=== PATIENT | male | born 1940 | race Caucasian/White ===

== ENCOUNTER 2018-10-09 01:03 | Inpatient (IN) | payer MEDICARE, OTHER, MEDICAID ==
[~2018-10-09] VITALS: Ht 185.4 cm; Wt 84.0 kg
--- NOTE | ~2018-10-09 | PR ---
[place], [place] PROGRESS NOTE NAME: LUCIA WADE UNIT #: [id number] ROOM: 314 DOCTOR: KENNETH MAHMOOD MD BIRTHDATE: [birth year] DOS: 10/13/2018 PSYCHIATRIC PROGRESS NOTE SUBJECTIVE: The patient is seen and spoke with the nursing staff. Per staff, the patient is doing well. No behavioral problems or issues. Compliant with medication. Slept well last night. The patient was pleasant and cooperative. He was interacting in the groups in the TV area, he was playing. He said that he is feeling better. He talked about his brother. He told me that his brother lives in [place] and he would like to meet with him time. He was not in any acute distress. He denied being depressed or sad. MENTAL STATUS EXAMINATION: The patient was pleasant and cooperative. He described his mood as "okay." Affect was euthymic. Thought process goal directed. No flight of ideas, loosening of association. He denied auditory or visual hallucination. No delusion or paranoia noted. He denies suicidal ideation, intent or plan. He also denied homicidal ideation, intent or plan. PLAN: 1. Continue current medication and care. 2. Continue redirection. 3. Supportive care. KENNETH MAHMOOD MD CM:PNTRANS [phone] KENNETH MAHMOOD MD 10/14/1852 interface
--- NOTE | ~2018-10-09 | PR ---
[place], [place] PROGRESS NOTE NAME: LUCIA WADE UNIT #: [id number] ROOM: 314 DOCTOR: KENNETH MAHMOOD MD BIRTHDATE: [birth year] DOS: 10/15/2018 SUBJECTIVE: The patient seen and spoke with the nursing staff. Per staff, the patient is doing well. No behavior problems or issues, taking his medication. He slept well last night. The patient was in the day area. He reports doing well. He denied any side effect from the medication. He reported good sleep and appetite. He did not express any problems or concern. MENTAL STATUS EXAMINATION: The patient was pleasant and cooperative. He described his mood as "good." Affect was euthymic. Thought processes with confabulation. He denied auditory or visual hallucination. No delusion or paranoia noted. He denied suicidal ideation, intent or plan. He also denied homicidal ideation, intent or plan. PLAN: 1. Continue current medication and care. 2. Continue redirection. 3. Supportive care. KENNETH MAHMOOD MD CM:PNTRANS [phone] KENNETH MAHMOOD MD 10/16/18 0404 interface
--- NOTE | ~2018-10-09 | PR ---
[place], [place] [facility]GRESS [id number] UN[facility] #: [id number] ROOM: 314 DOCTOR: KENNETH MAHMOOD MD BIRTHDATE: [birth year] DOS: 10/11/2018 PSYCHIATRIC PROGRESS NOTE. SUBJECTIVE: The patient is seen and I spoke with the staff. Per staff, the patient was irritable at times. Taking his meds, but refusing meals at times. The patient was pleasant and cooperative. He was in the day area. When I asked him about his behavior or issues of not taking medication, he said that "I have some issue." He also then mentioned that his brother and he feels sad and down. He did not express any other problems. He reports good sleep. He said that he is taking his medication and did not have any side effect. He also told me that he will be eating from now on. MENTAL STATUS EXAMINATION: The patient was pleasant and cooperative. Described his mood as "down." Affect was flat and euthymic. Thought processes with confabulation. He denied auditory or visual hallucination. No delusions or paranoia noted. He denied suicidal ideation, intent or plan. He also denied homicidal ideation, intent or plan. PLAN: 1. Continue current medication and care. 2. Encourage activities in groups. 3. Supportive care. KENNETH MAHMOOD MD CM:PNTRANS [phone] KENNETH MAHMOOD MD 10/12/182205 interface
--- NOTE | ~2018-10-09 | PR ---
[place], [place] PROGRESS NOTE NAME: LUCIA WADE UNIT #: [id number] ROOM: 314 DOCTOR: KENNETH MAHMOOD MD BIRTHDATE: [birth year] DOS: 10/21/2018 PSYCHIATRIC PROGRESS NOTE SUBJECTIVE: The patient seen and spoke with the nursing staff. Per staff, the patient is doing very well. No behavioral problems or issues. Slept 6 hours. Compliant with his medication. The patient was pleasant, cooperative. He was at [facility], he was in the day area. He was visited by his family. He reports doing okay. He denied any side effects from the medication. He reports good sleep and appetite. MENTAL STATUS EXAMINATION: The patient was pleasant, cooperative, described his mood as "okay." Affect was euthymic. Thought process is with confabulation. He denied auditory or visual hallucination. No delusion or paranoia noted. Denied suicidal ideation, intent or plan. He also denied homicidal ideation, intent or plan. PLAN: 1. Continue current medication and care. 2. Continue redirection. 3. Discharge planning. KENNETH MAHMOOD MD CM:PNTRANS 18 1 KENNETH MAHMOOD MD 10/22/18 0423 interface
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
--- NOTE | ~2018-10-09 | PR ---
[place], [place] PROGRESS NOTE NAME: LUCIA WADE UNIT #: [id number] ROOM: 314 DOCTOR: KENNETH MAHMOOD MD BIRTHDATE: [birth year] DOS: 10/18/2018 PSYCHIATRIC PROGRESS NOTE SUBJECTIVE: The patient was seen and spoke with the staff. Per staff, the patient is doing well. He also said that he slept well, but isolated. He is taking his medication regularly and did not have any side effect from the medication. MENTAL STATUS EXAMINATION: Pleasant and cooperative. Described his mood as "okay." Affect was euthymic. Thought process is goal directed. No flight of ideas, loosening of association. He denied suicidal ideation, intent or plan. He also denied homicidal ideation, intent or plan. PLAN: 1. Continue current medications. 2. Continue redirection. 3. Supportive care. KENNETH MAHMOOD MD CM:PNTRANS [phone] KENNETH MAHMOOD MD 10/19/18 0157 interface
--- NOTE | ~2018-10-09 | PR ---
[place], [place] PROGRESS NOTE NAME: LUCIA WADE UNIT #: [id number] ROOM: 314 DOCTOR: KENNETH MAHMOOD MD BIRTHDATE: [birth year] DOS: 10/20/2018 PSYCHIATRIC PROGRESS NOTE SUBJECTIVE: The patient is seen and spoke with nursing staff. Per staff, the patient slept 6 hours, still isolated, compliant with his medication. No behavior problems or issues. The patient was pleasant and cooperative. He was in the day area, seems somewhat flat. When I asked him how he is doing, he said that he is fine. He reports good sleep. He also denied any side effects from the medication. MENTAL STATUS EXAMINATION: The patient was pleasant and cooperative. Described his mood as "fine." Affect was flat. Thought processes with confabulation. He denied auditory or visual hallucination. No delusion or paranoia noted. He denied suicidal ideation, intent or plan. He also denied homicidal ideation, intent or plan. PLAN: 1. Continue current medication and care. 2. Continue redirection. 3. Encourage activity and groups. KENNETH MAHMOOD MD CM:PNTRANS [phone] KENNETH MAHMOOD MD 10/21/188 interface
--- NOTE | ~2018-10-09 | PR ---
[place], [place] PROGRESS NOTE NAME: LUCIA WADE UNIT #: [id number] ROOM: 314 DOCTOR: GUILLERMO MILLS CNP BIRTHDATE: [birth year] DOS: 10/17/2018 CHIEF COMPLAINT: "I am okay". SUMMARY OF THE VISIT: The patient was interviewed as he sat in the dining room, eating his breakfast. The patient verbalizes minimally with me providing mostly 1-2 word answers. He does report that he slept well last night. His appetite is good. He denies feeling anxious or agitated. Staff reports that the patient slept 8 hours. He has been compliant with medications. He has been stable. No behaviors exhibited. N inappropriate sexual behavior noted. MENTAL STATUS EXAMINATION: The patient is alert and oriented to person and self. He was pleasant and cooperative with me. No kaity or hypomania noted. No delusions or paranoia noted. No psychotic symptoms noted. No auditory or visual hallucinations noted. The patient's mood was calm. Affect is congruent with mood. No aggression or agitation noted at this time. PLAN: We will continue the patient's medications as prescribed as he appears to be tolerating them well without any side effects and they appear to be effective. Plan to discharge the patient on Thursday. In the meantime, encourage the patient to engage in individual and galvan milieu activity. Continue fall and safety precautions. Plan to return the patient to the least restrictive environment once psychiatrically stable. Guillermo Mills CNP CM:PNTRANS [phone] GUILLERMO MILLS CNP 10/17/18 1006 interface
--- NOTE | ~2018-10-09 | PR ---
[place], [place] PROGRESS NOTE NAME: LUCIA WADE UNIT #: [id number] ROOM: 314 DOCTOR: KENNETH MAHMOOD MD BIRTHDATE: [birth year] DOS: 10/14/2018 PSYCHIATRIC PROGRESS NOTE SUBJECTIVE: The patient was seen and spoke with the staff. Per staff, the patient slept well. No behavioral problems or issues, but seems to be still depressed. The patient was pleasant and cooperative. He was in the day area. He reports doing well. He talked about his sister. He said that he would like to go and visit them. He denied depressed mood. He did not express any concern. He said that he slept well last night. MENTAL STATUS EXAMINATION: The patient was pleasant and cooperative. He described his mood as "okay." Affect was euthymic. Thought processes with confabulation. He denied auditory or visual hallucination. No delusion or paranoia noted. He denies suicidal ideation, intent or plan. He also denied homicidal ideation, intent or plan. PLAN: 1. Continue current medications and care. 2. Continue redirection. 3. Supportive care. 4. Encourage activities in groups. KENNETH MAHMOOD MD CM:PNTRANS [phone] KENNETH MAHMOOD MD 10/15/18 0112 interface
--- NOTE | ~2018-10-09 | PR ---
[place], [place] PROGRESS NOTE NAME: LUCIA WADE UNIT #: [id number] ROOM: 315 DOCTOR: BIN PARKER MD BIRTHDATE: [birth year] DOS: 10/10/2018 CHIEF COMPLAINT: "Morning." SUMMARY OF THE VISIT: The patient was interviewed as he was resting in bed. He awoke relatively easily and engaged in brief superficial conversation. There was no agitation or aggression. There was no mood lability and there were no inappropriate comments. Nurses report that overall he has not been problematic and has been redirectable. MENTAL STATUS: He is alert and oriented to person, place, not necessarily time. Mood does seem to be fairly euthymic. Affect appropriate. No hypomania, kaity or psychosis is noted. Short term memory continues to be problematic. PLAN: At this point in time, I will maintain his current psychotropic regimen, monitor and engage in individual and galvan milieu activity, determining the least restrictive environment to which he could return. BIN PARKER MD CM:PNTRANS [phone] BIN PARKER MD 10/10/18 1032 interface
--- NOTE | ~2018-10-09 | PR ---
[place], [place] PROGRESS NOTE NAME: LUCIA WADE UNIT #: [id number] ROOM: 314 DOCTOR: BIN PARKER MD BIRTHDATE: [birth year] DOS: 10/11/2018 INTERVAL NOTE CHIEF COMPLAINT: "Oh, "I am okay. I would like to go visit my brother in [place] though." SUMMARY OF THE VISIT: The patient was interviewed in the dining area where he was rather bright and pleasant. He voiced no complaints. He minimized any of his behaviors, but nurses report, he has become increasingly more sexually inappropriate, not only as he asked them to lay on his private parts, but he has been found openly masturbating. MENTAL STATUS: He is alert and oriented to person, possibly place, not to time. Mood does seem to still be labile and affect is inappropriate. There is no kellee kaity. There is no gross psychosis. Short term memory continues to be problematic. PLAN: I will discontinue his Remeron in lieu of Celexa 20 mg in the morning to decrease his libido. We will monitor and support, engage in individual and galvan milieu activity, returning to the least restrictive environment when psychiatrically stable. BIN PARKER MD CM:PNTRANS [phone] BIN PARKER MD 10/12/18 0332 interface
--- NOTE | ~2018-10-09 | PR ---
[place], [place] PROGRESS NOTE NAME: LUCIA WADE UNIT #: [id number] ROOM: 314 DOCTOR: KENNETH MAHMOOD MD BIRTHDATE: [birth year] DOS: 10/19/2018 PSYCHIATRIC PROGRESS NOTE SUBJECTIVE: The patient is seen and spoke with the staff. Per staff, the patient did not sleep well last night, only 1-2 hours, but no other behavioral problems or issues. He is taking his medication regularly. Did not have any side effect. The patient was pleasant and cooperative. He was in the day area. His sister and came to visit him. They feel the patient is at baseline and getting ready to get discharged. The patient was in the day area. He reports doing well. He was able to recognize his and his sister. He denied any side effects from the medication. MENTAL STATUS EXAMINATION: The patient was pleasant and cooperative. Described his mood as "okay." Affect was euthymic. Thought process is with confabulation. He denied auditory or visual hallucination. No delusion or paranoia noted. He denied suicidal ideation, intent or plan. He also denied any homicidal ideation, intent or plan. PLAN: 1. Continue current medication and care. 2. Continue redirection and supportive care. KENNETH MAHMOOD MD CM:PNTRANS [phone] KENNETH MAHMOOD MD 10/20/185 interface
--- NOTE | ~2018-10-09 | PR ---
[place], [place] PROGRESS NOTE NAME: LUCIA WADE UNIT #: [id number] ROOM: 314 DOCTOR: GUILLERMO MILLS CNP BIRTHDATE: [birth year] DOS: 10/16/2018 CHIEF COMPLAINT: "I need to go to the bathroom." SUMMARY OF VISIT: The patient was interviewed as he sat in his bed. The patient reports that he slept well last night and that he is hungry. He is ready to get up and get breakfast. Staff reports that the patient stayed in his room most of the evening. He did sleep 9 hours last night. He has been taking medications as prescribed. No hallucinations have been noted. MENTAL STATUS EXAMINATION: The patient is alert and oriented to person and self. He is pleasant and cooperative with me. No kaity or hypomania noted. No delusions or paranoia noted. No psychotic symptoms noted. No auditory or visual hallucinations noted. The patient's mood was calm. His affect is congruent with mood. PLAN: We will continue the patient's medications as prescribed. We will continue to monitor for side effects and effectiveness of the medication. Continue to encourage the patient to engage in individual and galvan milieu activity. Continue fall and safety precautions and plan to return the patient to the least restrictive environment once he is considered psychiatrically stable. Guillermo Mills CNP CM:PNTRANS [phone] GUILLERMO MILLS CNP 10/16/18 1304 interface
[2018-10-09] MEDS ORDERED: LIPITOR20 MG PO (01:24)
[2018-10-09] MEDS ORDERED: ASPIRIN ADULT L81 MG PO (01:24)
[2018-10-09] MEDS ORDERED: REMERON15 M2 PO (01:26)
[2018-10-09 01:40] VITALS: BP 147/75
--- NOTE | 2018-10-09 01:40 | NUR ---
LUCIA WADE a 78 year old M admitted via from the ADMITTING as a emergency 72 hr. hold admission. Arrived on unit at 0140. ALLERGIES: FLAGYL, PCN. Vital signs are: [id number] 147/75. The client REFUSED TO signed the following forms: Authorization For The Release of Medical Information, Clothing List, Consent to Voluntary Admission and Hospitalization, Consent and Release Forms/Receipt of Rights, Acknowledgement of Advance Directive Information, Behavioral Health Consent Form, and Informed Consent of Medications. Admitted under the services of Dr. ELENA WAGNER,[facility]. A search was conducted and hazardous articles were removed. Client was oriented to the unit. LETICIA MCCRACKEN PATIENT ADMITTED AND PINK SLIPPED. PATIENT FROM [facility] ([facility]] AND SENT TO THE EMERGENCY ROOM FOR MEDICAL CLEARANCE BEFORE BEING ADMITTED TO THE FLOOR. PATIENT WITH SCATTERED SCABS TO NECK, BILATERAL UPPER AND LOWER EXTREMITIES. PATIENT WITH SMALL SCATTERED ECCHYMOTIC AREAS TO BILATERAL UPPER AND LOWER EXTREMIES AT VARIOUS STAGES OF HEALING. PATIENT WITH RIGHT SIDED WEAKNESS. PATIENT WITH RIGHT FOOT BRACE AND SPLINT FOR TOES.
[2018-10-09] MEDS ORDERED: SALINE NASAL SP88 ML NAS (01:44)
[2018-10-09] MEDS ORDERED: VITAMIN D31000 UNIT PO (01:46)
[2018-10-09] MEDS ORDERED: VIBRA-TAB100 MG PO (01:48)
[2018-10-09] MEDS ORDERED: ELIQUIS2.5 M1 PO (01:49)
[2018-10-09] MEDS ORDERED: RIVASTIGMINE T4.5 M1 PO (01:51)
[2018-10-09] MEDS ORDERED: NAMENDA10 MG PO (01:53)
[2018-10-09] MEDS ORDERED: RIVASTIGMINE TAR6 M1 PO (01:53)
[2018-10-09] MEDS ORDERED: DEPAKOTE DR500 MG PO (01:55)
[2018-10-09] MEDS ORDERED: DOCUSATE SODIU100 M2 PO (01:57)
[2018-10-09] MEDS ORDERED: MIRALAX17 GM PO (01:57)
[2018-10-09] MEDS ORDERED: ONDANSETRON4 MG SL (02:00)
[2018-10-09] MEDS ORDERED: SENNA LAX8.6 M1 PO (02:00)
--- NOTE | 2018-10-09 02:17 | NUR ---
DR ALLEN NOTIFIED ABOUT PATIENT ADMISSION. PATIENT UNDER DR ROD FOR MEDICAL MANAGEMENT
--- NOTE | 2018-10-09 02:20 | NUR ---
DR ALLEN ON UNIT TO SEE PATIENT
--- NOTE | 2018-10-09 04:35 | NUR ---
DR ALLEN CALLED AND UPDATED ABOUT [facility]EN SCORE AND REQUESTED SEAT CUSHION TO BE ORDERED FOR SKIN INTEGRITY PREVENTAIVE ISSUES. CALAZIME CREAM ORDERED BID PRN
[2018-10-09 06:31] LABS: CHLORIDE 110 mmol/L (98-107); POTASSIUM 3.7 mmol/L (3.5-5.1); SODIUM 142 mmol/L (136-145)
--- NOTE | 2018-10-09 06:40 | NUR ---
PATIENT SLEPT 2 HOURS OF UNINTERRUPTED SLEEP THROUGHOUT SHIFT. Q 15 MINUTE CHECKS MAINTAINED
[2018-10-09 06:45] LABS: ALBUMIN 2.6 gm/dl (3.1-4.5); ALKALINE PHOSPHATASE 126 U/L (45-117); BUN 22 mg/dl (7-24); CHOLESTEROL 143 mg/dL (<200); CREATININE 1.17 mg/dL (0.70-1.30); HDL CHOLESTEROL 61 mg/dl (40-60); LDL CHOLESTEROL 70 mg/dL (9-159); SGOT/AST 21 IU/L (3-35); SGPT/ALT 13 U/L (12-78); TOTAL PROTEIN 6.5 gm/dL (6.4-8.2); TRIGLYCERIDES 60 mg/dl (<150); VALPROIC ACID (DEPAKENE) 50.3 ug/ml (50-100); VLDL CHOLESTEROL 12 mg/dL (6-40)
[2018-10-09 07:39] VITALS: BP 118/55
[2018-10-09 07:51] LABS: VITAMIN D, 25-HYDROXY 48.3 ng/mL (30-100)
--- NOTE | 2018-10-09 07:57 | NUR ---
Patient resting quietly with no c/o discomfort. Respirations easy and regular. Vital signs stable. No overt distress. LUCAS MARQUEZ
--- NOTE | 2018-10-09 10:34 | NUR ---
DR. RIVAS MADE AWARE OF NEW CONSULT.
--- NOTE | 2018-10-09 11:45 | NUR ---
AM GROUP/MUSIC/GAMES PT ATTENDED AND OBSERVED. PT STATES "I DIDN'T GET MUCH SLEEP I GOT HERE LATE LAST NIGHT" PT ENCOURAGED TO STAY IN GROUP UNTIL LUNCH. PT LEFT TOWARDS THE END OF GROUP TO SIT IN THE HALLWAY. PT DID NOT BECOME COMBATIVE OR SEXUALLY INAPPROPRIATE AT THIS TIME. PT WILL CONTINUE TO BE ENCOURAGED TO ATTEND AND PARTICIPATE IN FUTURE GROUP SESSIONS, ALTHOUGH PT PLANNING TO NAP AFTER LUNCH.
--- NOTE | 2018-10-09 16:06 | NUR ---
PM GROUP/REMINISCE/LEISURE SKILLS PT CHOSE NOT TO ATTEND BUT TO STAY IN BED RESTING AT THIS TIME. PT WILL CONTINUE TO BE ENCOURAGED TO ATTEND AND PARTICIPATE IN FUTURE GROUP SESSIONS.
--- NOTE | 2018-10-09 18:42 | NUR ---
PT CONFUSED. ST/LT DEFICITS APPARENT. PT ASSESSED FOR ORIENTATION LEVEL, MOOD AND AFFECT. PT ASSESSED FOR SI/HI. ASSESSED FOR HALLUCINATIONS AND DELUSIONS. ASSESSED FOR SLEEP QUALITY AND APPETITE. PT ORIENTED TO PERSON ONLY. MOOD IS STABLE, AFFECT IS BLUNTED. PT DENIES SI, INTENT OR PLAN. DENIES HALLUCINATIONS. NO OVERT S/S OF ATTENDING TO INTERNAL STIMULI NOTED. PT REPORTS POOR SLEEP LAST NIGHT, PT DID TAKE NAP TODAY THIS SHIFT. APPETITE GOOD. WILL CONTINUE TO REORIENT AND REDIRECT APPROPRIATE. WILL CONTINUE TO ENCOURAGE RESTFUL SLEEP. WILL CONTINUE TO MONITOR APPETITE. Q15 MIN MONITORING FOR SAFETY.
[2018-10-09 20:00] VITALS: BP 118/81
--- NOTE | 2018-10-09 21:50 | NUR ---
P-CONFUSION. PATIENT ALERT AND WITH CONFUSION. PATIENT WITH SHORT TERM AND PRISON MEMORY DEFICITS. PATIENT WITH NO SUICIDAL OR HOMICIDAL IDEATIONS. PATIENT WITH NO HALLUCINATIONS OR DELUSIONS. I-REDIRECTION WITH 1:1 THERAPEUTIC INTERVENTIONS AND PRESENT REALITY. EDUCATE AND ENCOURAGE MEDICATION COMPLIANCE. R-PATIENT WITH RIGHT SIDE WEAKNESS. PATIENT WITH RIGHT LEG REST ON WHEELCHAIR AND PROPELLING WITH LEFT LEG ON UNIT. PATIENT MEDICATION COMPLIANT. PATIENT PROVIDED NOURISHMENT, FLUIDS, AND TOILETING AT HS. R-CONTINUE TO ENCOURAGE MEDICATION COMPLIANCE, CONTINUE TO PRESENT REALITY, ENCOURAGE GROUP THERAPY WHILE AWAKE
--- NOTE | 2018-10-10 05:19 | NUR ---
24 HR chart check completed.
--- NOTE | 2018-10-10 05:39 | NUR ---
PATIENT SLEPT >6 HOURS OF INTERRUPTED SLEEP THROUGHOUT SHIFT. Q 15 MINUTE CHECKS MAINTAINED
[2018-10-10 07:34] VITALS: BP 120/65
--- NOTE | 2018-10-10 07:53 | NUR ---
Patient resting quietly with no c/o discomfort. Respirations easy and regular. Vital signs stable. No overt distress. LUCAS MARQUEZ
--- NOTE | 2018-10-10 15:06 | NUR ---
PT ISOLATIVE TO SELF, REFUSING BREAKFAST AND LUNCH. PT ASSISTED UP TO DINING ROOM FOR LUNCH, PROPELLED SELF BACK TO ROOM AND TRANSFERRED SELF TO BED. 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 PT REDIRECTED AND EDUCATED ON IMPORTANCE OF WAITING FOR STAFF. PT ENCOURAGED TO COME OUT OF ROOM FOR MEALS AND INTERACTION WITH STAFF AND PEERS. PT USING CALL LIGHT APPROPRIATELY AT THIS TIME, ASKING STAFF FOR ASSISTANCE. PT REMAINS IN BED, NOT WISHING TO INTERACT AT THIS TIME. DENIES SI/HI. DENIES HALLUCINATIONS AND DELUSIONS. NO OVERT S/S OF ATTENDING TO INTERNAL STIMULI. WILL CONTINUE TO ENCOURAGE PT TO INTERACT WITH STAFF AND PEERS. WILL ENCOURAGE CONTINUED MEDICATION COMPLIANCE. WILL ENCOURAGE PT TO CONSUME MEALS. WILL PROVIDE EMOTIONAL SUPPORT AND REDIRECTION APPROPRIATE. Q15 MIN MONITORING FOR SAFETY.
[2018-10-10 19:54] VITALS: BP 114/63
[2018-10-10 20:06] VITALS: BP 114/63
--- NOTE | 2018-10-11 00:44 | NUR ---
P-SEXUALLY INAPPROPRIATE BEHAVIOR, DEPRESSED MOOD I-ASSESS ORIENTATION, MOOD, AND BEHAVIOR. PROVIDE 1:1 FOR VENTILATION OF FEELINGS WITH EMOTIONAL SUPPORT NEEDED. ENCOURAGE MEDICATION COMPLIANCE. MONITOR SLEEP. MAINTAIN SEXUAL PREOCCUPATION PRECAUTIONS. R- PATIENT ALERT AND ORIENTED TO PERSON AND PLACE WITH CONFUSION. MOOD DEPRESSED. PT CALM, MOBILIZES SELF THROUGHOUT UNIT IN A WHEELCHAIR, INTERACTS WITH STAFF AND PEERS WHEN PROMPTED. DURING 1:1 PATIENT BECAME TEARFUL AND STATED "MY BROTHER IN [place] HAS BLADDER CANCER AND I WANTED TO SEE HIM BEFORE HE DIES", EMOTIONAL SUPPORT PROVIDED WITH POSITIVE EFFECT. PT DENIES SI/HI AND HALLUCINATIONS, NO NOTED RESPONDING TO INTERNAL STIMULI. PT MEDICATION COMPLIANT WITHOUT DIFFICULTY AFTER REVIEW. WHEN ASSISTED TO BED BY STAFF PATIENT TOUCHED HIS PRIVATE AREA IN A VULGAR MANNER, PT REDIRECTED WITHOUT DIFFICULTY AND EDUCATED ON APPROPRIATE BEHAVIOR, X2 STAFF DURING ALL INTERACTIONS. NO PHYSICAL COMPLAINTS VOICED. PATIENT CURRENTLY LAYING DOWN WITH EYES CLOSED, RESPIRATIONS EASY AND REGULAR, NO SIGNS OR SYMPTOMS OF DISTRESS NOTED. P- CONTINUE TO MONITOR MOOD AND BEHAVIORS. PROVIDE 1:1 WITH VENTILATION OF FEELINGS WITH EMOTIONAL SUPPORT NEEDED. ENCOURAGE MEDICATION COMPLIANCE AND EDUCATE. MAINTAIN SEXUAL PREOCCUPATION PRECAUTIONS AND 15 MIN CHECKS.
--- NOTE | 2018-10-11 03:17 | NUR ---
24 hour chart check completed.
--- NOTE | 2018-10-11 06:09 | NUR ---
PATIENT OBSERVED ON Q 15 MIN CHECKS TO HAVE SLEPT 5 HOURS THIS SHIFT UNINTERRUPTED. NO SIGNS OR SYMPTOMS OF DISTRESS NOTED.
[2018-10-11 07:40] VITALS: BP 106/64
--- NOTE | 2018-10-11 08:00 | NUR ---
Treatment Plan meeting with Dr. Bustamante, RN, AT, SW and Construction Superintendent. Plan for discharge next week. Pt. came to [facility] from [facility]. Will reach out to facility today to discuss discharge Planning.
--- NOTE | 2018-10-11 09:02 | NUR ---
PHYSICAL THERAPY Nursing screen received and chart reviewed. Physical therapy referral received. Thank you. Lian Crawford,PT,DPT.
[2018-10-11 09:18] VITALS: BP 118/79
--- NOTE | 2018-10-11 12:02 | NUR ---
AM GROUP PT WAS PRESENT FOR MORNING GROUP THERAPY BUT REFUSED TO PARTICIPATE AND KEPT ASKING TO GO TO BED. PT STATED, "THAT ROOMMATE OF MINE KEPT ME UP ALL NIGHT AND I'M TIRED. I'M SO TIRED I MIGHT FALL OUT OF THE WHEELCHAIR." PT NURSE WAS NOTIFIED AND PT WAS REDIRECTED. PT SAT QUIETLY AT A TABLE WITH HEAD DOWN AND EYES CLOSED. PT EXHIBITED NO SEXUAL INAPPROPRIATE BEHAVIOR DURING GROUP.
--- NOTE | 2018-10-11 13:04 | NUR ---
Spoke with Sue Pierre Control Manager at [facility]. Pt. is LTC at facility and will return at discharge. Clinical Updates faxed to Facility .
--- NOTE | 2018-10-11 13:17 | NUR ---
P: IRRITABLE MOOD, CONFUSION-SHORT TERM MEMORY DEFICITS I: ONE ON ONE, REDIRECTION, TOILETED PER REQUEST, OFFERED SNACK, REORIENTATION NEEDED. ENCOURGED TO ATTENTED GROUP SESSION. R: EFFECTIVE. MUCH ENCOURAGEMENT PROVIDED TO ATTEND GROUP SESSION. PATIENT IS ALERT TO PERSON, PLACE AND TIME WITH INTERMITTANT CONFUSION. MOOD IS IRRITABLE. DENIES ANY HALLUCINATIONS, DELUSIONS, HI/SI OR PAIN. MEDICATION COMPLIANT WITH EDUCATIONS PROVIDED. Q 15 MINUTE SAFETY CHECKS MAINTAINED. P: CONTINUE TO MONITOR FOR AGGRESSION, SEXUAL INAPPROPRIATE COMMENTS/GESTURES; MEDICATION COMPLAINCE AND EXIT SEEKING. PROVIDE ONE ON ONE, REDIRECTION NEEDED.
--- NOTE | 2018-10-11 14:38 | NUR ---
Pt was pleasant with this process description writer but did state that he was very tired because he did not sleep well last night. Pt's sister had just left after visiting with pt. Pt spoke about his sister and reminisced about when they were younger. Pt spoke about the nurse at the that he views as the reason for his [facility] admission. Pt was appropriate in conversation with noted loss in his short-term memory.
--- NOTE | 2018-10-11 16:02 | NUR ---
PM GROUP/ART AND MUSIC PT WAS PRESENT FOR AFTERNOON GROUP SITTING IN A CHAIR WITH HIS EYES CLOSED. PT DID NOT PARTICIPATE IN ANY ACTIVITY.
--- NOTE | 2018-10-11 16:05 | NUR ---
PM GROUP/ART AND MUSIC PT DID NOT ATTEND AFTERNOON GROUP THERAPY. PT WAS IN BED RESTING
--- NOTE | 2018-10-11 17:43 | NUR ---
Nursing screen and Occupational Therapy referral received. Thank you. Maite Harman OTR/L
[2018-10-11 20:00] VITALS: BP 112/80
--- NOTE | 2018-10-11 20:40 | NUR ---
EVENING/MUSIC/BIRDHOUSES PT ATTENDED BUT CHOSE NOT TO PARTICIPATE. PT OFFERED MANY ACTIVITY'S BUT STATES "I JUST WANT TO LISTEN TO THE MUSIC". PT PLEASANT WITH NO SEXUALLY INAPPROPRIATE, OR COMBATIVE BEHAVIORS AT THIS TIME. PT WILL CONTINUE TO BE ENCOURAGED TO ATTEND AN DPARTICIPATE IN GROUP TO BEST OF PT ABILITY.
--- NOTE | 2018-10-11 21:32 | NUR ---
24 HR chart check completed.
--- NOTE | 2018-10-11 21:54 | NUR ---
P-IRRITABLE MOOD, MEMORY DEFICITS I-PROVIDE VERBAL INTERVENTION FOR EMOTIONAL SUPPORT, ADMINISTER MEDICATIONS, MONITOR SLEEP R-ALERT & ORIENTED TO PERSON, PLACE & TIME WITH SHORT TERM MEMORY DEFICITS. SENIOR LIVING MEMORY INTACT. PT SPOKE ABOUT LIVING ON A FARM, RAISING HIS CHILDREN BEING IN THE . PLEASANT INTERACTIONS. MOVES VIA WHEELCHAIR WITH 1-2 STAFF ASSISTS. NO AGITATION OR AGGRESSIVE BEHAVIOR. NO INAPPROPRIATE BEHAVIOR. HAS REMAINED CALM, POLITE & PLEASANT. ATE SNACK. COMPLIANT WITH MEDICATIONS. P-CONTINUE TO MONITOR & PROVIDE PHYSICAL ASSISTANCE & EMOTIONAL SUPPORT NEEDED.
--- NOTE | 2018-10-12 05:58 | NUR ---
PT HAS SLEPT QUIETLY PAST 2129.
[2018-10-12 08:00] VITALS: BP 120/63
--- NOTE | 2018-10-12 08:00 | NUR ---
Treatment Plan meeting with Dr. Castro, RN, AT, SW and Helicopter Technician. Plan for discharge next week. Pt. will return to the [facility].
--- NOTE | 2018-10-12 11:19 | NUR ---
Patient unavailable for Occupational Therapy eval at this time due to group session. Will attempt OT eval at a later date. Mamadou Giordano S/OT Maite Harman OTR/l
--- NOTE | 2018-10-12 11:19 | NUR ---
PHYSICAL THERAPY Physical therapy evaluation attempted. Patient in Group Session at this time. Will try again at a later time/date. Thank you. Lian Crawford,PT,DPT.
--- NOTE | 2018-10-12 12:07 | NUR ---
AM GROUP/JAMAL PT WAS PRESENT FOR MORNING GROUP THERAPY BUT CHOSE NOT TO PARTICIPATE. PT SAT IN WHEELCHAIR CLOSE TO THE DOOR WITH HIS EYES CLOSED. PT EXPRESSED NO SEXUAL INAPPROPRIATENESS DURING GROUP
--- NOTE | 2018-10-12 14:13 | NUR ---
PHYSICAL THERAPY Physical therapy evaluation complete, 3N. Full evaluation/details to follow. Moderate complexity evaluation (86022) per chart review and evaluation. PT to progress with LE strength, transfer, and gait per POC. Recommend patient discharge to LTC facility. Thank you. Lian Crawford,PT,DPT.
--- NOTE | 2018-10-12 14:13 | NUR ---
Occupational therapy eval complete on 3 with full eval to follow. Precautions include fall risk, 3N unit, and R hemiplegia. Moderate complexity level 52349 via chart review, testing, and eval. Recommend OT per POC and discharge to LTC facility to enable max ability to function. Thank you for this referral. Mamadou Giordano S/OT Maite Harman OTR/L
--- NOTE | 2018-10-12 15:05 | NUR ---
PATIENT IS ALERT AND ORIENT TO PERSON, SITUATION AND SOMEWHAT TIME WITH TODAY BEING THURSDAY AND 2018. PATIENT HAS SHORT TERM MEMORY DEFICITS. MOOD IS STABLE. NO SEXUALLY INAPPROPRIATE STATEMENTS OR GESTURES. PATIENT DENIES ANY HALLUCINATIONS, DELUSIONS, HI/SI OR PAIN. INTERACTIVE WITH STAFF AND PARTICIPATED IN AFTERNOON GROUP SESSION. MEDICATION COMPIANT WITH EDUCATION PROVIDED. Q 15 MINUTE SAFETY CHECKS MAINTAINED. CONTINUE TO MONITOR FOR MOOD, AGGRESSION AND SEXUALLY INAPPROPRIATE STATEMENTS/GESTURES. PROVIDE ONE ON ONE AND REDIRECTION NEEDED.
--- NOTE | 2018-10-12 15:45 | NUR ---
PM GROUP/LEISURE INTERESTS PT CAME INTO GROUP LATE AND SAT AND OBSERVED FOR THE MOST PART. PT DID ENGAGE IN CONVERSATION WITH THIS HEAD AUTOMATIC SAWYER. PT EXPRESSED NO SEXUAL INAPPROPRIATENESS WHILE IN GROUP. PT WILL BE ENCOURAGED TO PARTICIPATE IN FUTURE GROUP SESSIONS
--- NOTE | 2018-10-12 15:47 | NUR ---
Pt is stating that he is wanting to discharge because he needs to see his brother who is very ill. When asked where his brother is, pt stated that his brother lives in [facility]. Pt stated that he plans on driving to [place] to see his brother. When questioned about this, pt stated that there is no reason preventing him from driving. Pt then spoke about the nurse at the that pt believes is the reason for his admission. Pt stated, "I'd be home if it wasn't for that nurse."
[2018-10-12 19:44] VITALS: BP 125/65
--- NOTE | 2018-10-12 21:04 | NUR ---
24 HR chart check completed.
--- NOTE | 2018-10-12 21:50 | NUR ---
P-MEMORY DEFICITS I-PROVIDE VERBAL INTERVENTION FOR EMOTIONAL SUPPORT, ADMINISTER MEDICATIONS, MONITOR SLEEP R-ALERT & ORIENTED TO PERSON, SOMEWHAT PLACE & TIME WITH SHORT TERM MEMORY DEFICITS. PRISON MEMORY INTACT. PT SPOKE ABOUT CAMPING OUTDOORS WHEN HE WAS YOUNGER. PLEASANT INTERACTIONS. MOVES VIA WHEELCHAIR WITH 1-2 STAFF ASSISTS. NO AGITATION OR AGGRESSIVE BEHAVIOR. NO INAPPROPRIATE BEHAVIOR. HAS REMAINED CALM, POLITE & PLEASANT. ATE SNACK. COMPLIANT WITH MEDICATIONS. P-CONTINUE TO MONITOR & PROVIDE PHYSICAL ASSISTANCE & EMOTIONAL SUPPORT NEEDED. =
--- NOTE | 2018-10-13 05:52 | NUR ---
PT HAS SLEPT PAST 2100 WITH A BRIEF AWAKENING TO GO TO THE BATHROOM WITH 2 STAFF ASSISTS.
--- NOTE | 2018-10-13 07:26 | NUR ---
OT NOTE Pt was seen this A.M. 1:1 for 23 minute OT session with HEADWAITRESS and nursing staff present for observation only. Upon arrival pt was supine in bed. Pt identified by name and and had no complaints at this time. Pt transferred supine to sit EOB with modA for assist with UB. While sitting EOB pt donned B tennis shoes and RLE AFO. Pt was able to steve L shoe with SBA after set up and R shoe and AFO with modA due to pt's report of "weakness." Sit to stand completed from bed level with modA X 2. Pt completed stand pivot from EOB to the w/c with modA X 2 and maxA for RLE foot advancement. Throughout stand pivot pt had multiple episodes of R knee buckling and poor posture requiring maxA to correct. Pt then was educated on w/c safety which he then propelled himself from the bedroom to the dining room with SBA. Pt had good carry over of break use and turning. Throughout pt required four rest breaks due to quick onset of fatigue and one verbal prompt for navigation through doorway. Extra time given throughout session due to slow rate of performance. Pt was left sitting upright in the dining room in the w/c with R leg rest in place, body alarm on for safety, and under U staff supervision. Continue with rec D/C plan to LTC. ANGELA Abel/Tigre
[2018-10-13 08:11] VITALS: BP 117/56
--- NOTE | 2018-10-13 08:17 | NUR ---
PHYSICAL THERAPY Patient seen this am for therapy visit and was just awakening supine in bed upon therapist arrival. OT accounts payable assistant was present for observation only during DIGITAL PROJECT COORDINATOR visit as patient reports no new c/o's at this time. Patient transfers supine to sit EOB with MOD A and needed a few minutes to collect himself while putting on R AFO brace and his shoes. Patient needed therapist assist safely Ayden brace and trasfers sit to stand MOD/CONSULTANTS INTERN, then performed SPT to w/c CONSULTANTS INTERN/MOD, requiring v/c to stand tall, demonstrating increased difficulty advancing R foot. Patient remained in w/c and transported to activity room awaiting breakfast under [facility] staff Supervision. Will continue per POC as tolerated, total treatment time 13 minutes. Tre Conti, DIGITAL PROJECT COORDINATOR
--- NOTE | 2018-10-13 10:30 | NUR ---
Discharge Plan remains for Plans to discharge next week with return to the [facility].
--- NOTE | 2018-10-13 10:39 | NUR ---
ON UNIT TO SEE PT AT THIS TIME, UPDATE GIVEN.
--- NOTE | 2018-10-13 11:46 | NUR ---
AM GROUP/EXERCISE AND PARACHUTE PT ATTENDED MORNING GROUP THERAPY AND PARTICIPATED BY DOING THE EXERCISES AND PLAYING PARACHUTE AND RING TOSS. PT WAS FOCUSED AND ENGAGED IN THE ACTIVITES. PT EXHIBITED NO AGITATION OR AGGRESSION DURING GROUP.
--- NOTE | 2018-10-13 14:20 | NUR ---
PHYSICAL THERAPY CO-SIGN I approve of the Physical Therapy notes written above. KURTIS COFFMAN PT,DPT
--- NOTE | 2018-10-13 14:39 | NUR ---
P: ISOLATIVE, WITHDRAWN TO SELF, FLAT AFFECT. I: ONE ON ONE, REDIRECTION, ENCOURAGE GROUP PARTICIPATION. R: EFFECTIVE. PATIENT PARTICIPATED IN MORNING GROUP SESSION. PATIENT RESTING IN BED THIS AFTERNOON. PATIENT IS ALERT AND ORIENT TO PERSON AND PLACE WITH CONFUSION; ABLE TO VOICE NEEDS. SHORT TERM MEMORY DEFICITS NOTED. MOOD IS DEPRESSED, FLAT AFFECT. DENIES ANY HALLUCINATIONS, DELUSIONS, HI/SI OR PAIN. NO RESPONSE TO INTERNAL STIMULI OBSERVED. NO SEXUALLY INAPPROPRIATE BEHAVIORS OR AGGRESSION NOTED. Q 15 MINUTE SAFETY CHECKS MAINTAINED. MEDICATION COMPLIANT WITH EDUCATION PROVIDED. CONTINUE TO MONITOR MOOD, AGGRESSION AND SEXUALLY INAPPROPRIATE BEHAVIORS. PROVIDE ONE ON ONE, REDIRECTION/ORIENTATION, MEDICATION COMPLIANCE AND ENCOURAGE GROUP PARTICIPATION.
--- NOTE | 2018-10-13 15:12 | NUR ---
Shift chart check completed.
--- NOTE | 2018-10-13 15:49 | NUR ---
PM GROUP/LEISURE INTERESTS PT DID NOT ATTEND AFTERNOON GROUP THERAPY. PT STAYED IN BED NAPPING
[2018-10-13 19:22] VITALS: BP 142/67
--- NOTE | 2018-10-13 23:30 | NUR ---
NO ADVERSE BEHAVIORS NOTED. PT ALERT AND ORIENTED X3 WITH CONFUSION. MOOD STABLE. PT CALM AND COOPERATIVE, INTERACTIVE WITH STAFF AND PEERS WHEN PROMPTED. MEDICATION COMPLIANT WITHOUT DIFFICULTY AFTER REVIEW. PT DENIES SI/HI AND HALLUCINATIONS, NO NOTED RESPONDING TO INTERNAL STIMULI. NO PARANOIA/DELUSIONS OBSERVED. COMPLIANT WITH HANDS ON CARE, NO SEXUALLY INAPPROPRIATE BEHAVIOR NOTED. NO PHYSICAL COMPLAINTS VOICED. PT CURRENTLY LAYING DOWN WITH EYES CLOSED, RESPIRATIONS EASY AND REGULAR, NO SIGNS OR SYMPTOMS OF DISTRESS NOTED.
--- NOTE | 2018-10-14 05:53 | NUR ---
24 HOUR CHART CHECK COMPLETED.
--- NOTE | 2018-10-14 06:06 | NUR ---
PATIENT OBSERVED ON Q 15 MIN CHECKS TO HAVE SLEPT APPROX 8 HOURS WITH NO AWAKENINGS OR SIGNS AND SYMPTOMS OF DISTRESS NOTED.
--- NOTE | 2018-10-14 07:25 | NUR ---
OT NOTE Pt was seen this A.M. 1:1 for 25 minute OT session with COGNOS TM1 DEVELOPER and nursing staff present for observation. Upon arrival pt was supine in bed. Pt identified by name and and had no complaints at this time. Pt transferred supine to sit EOB with Higinio and use of bed rail for UE support. While sitting EOB pt donned L sock with modA and R sock with maxA, attempted to trial compensatory techniques and pt was unable due to reporting "my R arm does nothing." Pt then donned R shoe with modA and L shoe with SBA after set up. Sit to stand completed from bed level with modA X 2 followed by stand pivot from EOB to the w/c with modA X 2. Pt required maxA for R foot advancement. Pt was then taken into the hallway where he completed multiple sit to stand transfers from chair level with Higinio and use of hand rail for UE support. Challenged pt's dynamic standing balance needed for increased I and enhanced safety. While standing without UE support and reaching over various planes pt was able to maintain F- balance requiring Higinio or UE support. Pt then propelled w/c with SBA to the dining room. Pt had good safety awareness with breaks and turning however required three rest breaks throughout. Pt was left sitting upright in the w/c in the dining room with body alarm on for safety and under U staff supervision. Continue with rec D/C plan to LTC. ANGELA Abel/Tigre
[2018-10-14 07:49] VITALS: BP 117/63
--- NOTE | 2018-10-14 11:09 | NUR ---
Discharge Plan remains unchanged. Plan to discharge next week with return to [facility].
--- NOTE | 2018-10-14 11:45 | NUR ---
PHYSICAL THERAPY Patient presented to therapy in supine with no verbalized complaints. Patient gives informed consent for treatment. Patient performed supine to sitting at EOB transfer with MIN A X 1. Patient transferred sit to stand off of EOB with MIN A X 1. Patient DONNED BRACE ON R LE with assistance from therapist before standing. Patient stood from Wheelchair with MIN A X 2, while using rail in hallway to pull on to stand. Patient stood at hallway railing with CGA X 2 for 2 minutes and then turned to his Right. Patient then ambulated with hallway railing on L side and CGA X 1 on L side for 20' x 1 with verbal cues for upright posture and increasing step length. Patient transferred back to sitting in bedside chair with CGA X 1. Patient was left in activity room with other patients and U STAFF present with chair alarm attached. Patient was left in sitting in wheelchair. Patient was 1;1 with this MULTIMEDIA EDUCATIONAL SPECIALIST for for 25 minutes total. ISABELL HAMMONDS MULTIMEDIA EDUCATIONAL SPECIALIST
--- NOTE | 2018-10-14 11:49 | NUR ---
AM GROUP PT ATTENDED MORNING GROUP THERAPY AND PARTICIPATED BY READING THE NEWSPAPER AND SOCIALIZING. PT IS VERY SOFT SPOKEN AND LIKES TO REMINISCE. PT EXPRESSED NO SEXUAL IDEATIONS DURING GROUP.
--- NOTE | 2018-10-14 12:39 | NUR ---
PT MEDICATION COMPLIANT, COOPERATIVE WITH ALL ASPECTS OF CARE, REQUESTED TO LAY DOWN AT THIS TIME. UPON TALKING WITH PT HE STATES NO SI/HI OR DELUSIONS. ALERT TO SELF, BELIEVES HE IS IN A USP, PT UNABLE TO ANSWER QUESTIONS DUE TO MEMORY DEFICITS. COOPERATIVE WITH BRACE AND REMAINS CONTINENT OF BOWEL AND BLADDER AT THIS TIME. CONTINUE WITH MONITORING 15 MIN CHECKS AT THIS TIME.
--- NOTE | 2018-10-14 15:38 | NUR ---
PM GROUP/SOCIAL INTERACTIONS PT DID NOT ATTEND AFTERNOON GROUP THERAPY. PT WAS IN BED NAPPING
[2018-10-14 20:22] VITALS: BP 134/76
--- NOTE | 2018-10-14 21:09 | NUR ---
Patient alert and oriented x3 with confusion noted. Patient laying down in bed at this time. ST/LT memory deficits noted. Denies SI. No signs of any hallucinations/delusions noted at this time. Patient compliant with medications without any difficulty. Provided 1:1 with patient for emotional support. No sexual inappropriateness noted at this time. Redirected/reoriented when appropriate/needed. Plan to continue to encourage medication compliance and continue to provide 1:1 for emotional support. Also continue to redirect/reorient when needed/appropriate. Q 15 minute safety checks continued and maintained. See [facility] flowsheet for further documentation.
--- NOTE | 2018-10-15 00:17 | NUR ---
24 HR chart check completed.
--- NOTE | 2018-10-15 05:13 | NUR ---
Patient slept approx. 7 hours throughout shift. Q 15 minutes safety checks continued and maintained.
--- NOTE | 2018-10-15 07:11 | NUR ---
OT NOTE Pt was seen this A.M. 1:1 for 15 minute OT session with STABILIZING MACHINE OPERATOR and nursing staff present for observation only. Upon arrival pt was supine in bed. Pt identified by name and and had no complaints at this time. Pt transferred supine to sit EOB with Higinio for assist with UB. While sitting EOB pt donned L shoe with SBA after set up and R shoe and AFO with modA. Attempted to educate pt on compensatory techniques for LB dressing and pt was unable to complete due to having LOB to the R when attempting requiring modA to correct. Sit to stand completed from bed level with modA X 2 followed by stand pivot from EOB to the w/c with modA x 2 and maxA for R foot advancement. Pt was left sitting upright the w/c in the dining room with body alarm on for safety and under U staff supervision. Continue with rec D/C plan to LTC. ANGELA Abel/Tigre
[2018-10-15 07:25] VITALS: BP 104/59
--- NOTE | 2018-10-15 08:35 | NUR ---
PHYSICAL THERAPY PT IN BED UPON ARRIVAL. PT IDENTIFIED BY NAME AND . VADIM PRESENT FOR OBSERVATION FOR TREATMENT. PT AGREED TO ALL TREATMENT. PT REQUIRED MIN MOTIVATION TO TAKE PART IN ALL TREATMENT. PT PERFORMED BED MOBILITY WITH LUDIN X1 WITH VC'S TO PERFORM TASK. PT PERFORMED STS FROM EOB TO WC WITH MODA X2 WITH VC'S MOVE FEET TO TURN AND STEP BACKWARD TO WC. PT FOLLOWED COMMANDS WELL. PT IN ACTIVITY ROOM FOR BREAKFAST AT END OF SESSION. PT SEEN 1:1 FOR 12MIN. KADEEM RODRIGUES PTA
--- NOTE | 2018-10-15 11:32 | NUR ---
PT MEDICATION COMPLIANT, COOPERATIVE WITH ALL ASPECTS OF CARE, REQUESTED TO LAY DOWN AT THIS TIME. UPON TALKING WITH PT HE STATES NO SI/HI OR DELUSIONS. ALERT TO SELF, BELIEVES HE IS IN A [facility], PT UNABLE TO ANSWER QUESTIONS DUE TO MEMORY DEFICITS. COOPERATIVE WITH BRACE AND REMAINS CONTINENT OF BOWEL AND BLADDER AT THIS TIME. CONTINUE WITH MONITORING 15 MIN CHECKS AT THIS TIME. PT WEIGHT BEARING DOES FLUCUATE WITH HIS ALERTNESS, BETWEEN 1-2 ASSIST, NO SEXUAL STATEMENTS MADE FROM THIS PATIENT TOWARD ANY STAFF MEMBERS.
--- NOTE | 2018-10-15 11:37 | NUR ---
AM GROUP/EXERCISE PT ATTENDED MORNING GROUP THERAPY AND PARTICIPATED IN ALL OF THE EXERCISE TO THE BEST OF HIS ABILITY. PT EXHIBITED NO AGITATION OR SEXUAL INAPPROPRIATENESS DURING GROUP.
--- NOTE | 2018-10-15 15:17 | NUR ---
DR MAHMOOD ON UNIT TO SEE PT, DR CHRISTINE ON UNIT AT 1000 TO SEE PT TODAY ALSO
--- NOTE | 2018-10-15 15:39 | NUR ---
PM GROUP PT DID NOT ATTEND AFTERNOON GROUP THERAPY. PT WAS IN BED NAPPING
--- NOTE | 2018-10-15 15:45 | NUR ---
Treatment Plan meeting with Dr. Castro, RN, SW and Tableau Analyst. Plan for discharge next week. Pt. will return to [facility]. Notified Sue Pierre of the [facility] of Discharge Plans.
--- NOTE | 2018-10-15 16:01 | NUR ---
ON UNIT TO SEE PT AT THIS TIME. UPDATE GIVEN. NNO RECIEVED.
[2018-10-15 20:00] VITALS: BP 112/54; BP 141/71
--- NOTE | 2018-10-16 01:13 | NUR ---
Patient alert and oriented x3 with confusion noted. Patient laying down in bed at this time. ST/LT memory deficits noted. Denies SI. No signs of any hallucinations/delusions noted at this time. Patient compliant with medications without any difficulty. Provided 1:1 with patient for emotional support. No sexual inappropriateness noted at this time. Redirected/reoriented when appropriate/needed. Plan to continue to encourage medication compliance and continue to provide 1:1 for emotional support. Also continue to redirect/reorient when needed/appropriate. Q 15 minute safety checks continued and maintained. See [facility] flowsheet for further documentation.
--- NOTE | 2018-10-16 05:21 | NUR ---
Patient slept approx. 9 hours throughout shift. Q 15 minutes safety checks continued and maintained.
--- NOTE | 2018-10-16 08:07 | NUR ---
PT RESTING QUIETLY IN BED WITH EYES CLOSED, RESPS EASY AND EVEN ON ROOM AIR. DECLINED TO GET UP FOR BREAKFAST AT THIS TIME. NO DISTRESS NOTED. JESSICA QUALITY REVIEWER ON UNIT TO SEE PT AT THIS TIME, UPDATE GIVEN.
[2018-10-16 08:12] VITALS: BP 101/57
--- NOTE | 2018-10-16 11:54 | NUR ---
AM GROUP/EXERCISES/BINGO/MUSIC PT ATTENDED AND PARTICIPATED DURING EXERCISES. PT GIVEN BINGO MATERIALS BUT PT CHOSE TO FALL ASLEEP IN CHAIR. PT EXITED ACTIVITY'S TO RETURN 15 MINUTES LATER. PT OBSERVED REST OF GROUP SESSION WITH NO SEXUALLY INAPPROPRIATE OR COMBATIVE BEHAVIORS NOTED. PT WILL CONTINUE TO BE ENCOURAGED OT ATTEND AN DPARTICIPATE IN FUTURE GROUP SESSIONS TO BEST OF PT ABILITY.
--- NOTE | 2018-10-16 16:05 | NUR ---
PM GROUP/LEISURE SKILLS PT CHOSE TO REMAIN IN BED AT THIS TIME ALTHOUGH ENCOURAGED TO ATTEND AN DPARTICIPATE. PT STATES "I'M SO COLD I JUST WANT TO LAY DOWN AND WARM UP". PT NEVER SHOWED UP TO GROUP BUT WILL CONTINUE TO BE ENCOURAGED TO ATTEND AN DPARTICIPATE IN FUTURE GROUP SESSIONS.
--- NOTE | 2018-10-16 18:49 | NUR ---
PT IS ALERT AND ORIENTED X3. ST/LT MEMORY GAPS NOTED. RESPS EASY AND EVEN ON ROOM AIR. MOOD APPEARS STABLE WITH APPROPRIATE AFFECT. SPEECH IS WNL AND COHERENT, ABLE TO MAKE NEEDS KNOWN WITHOUT DIFFICULTY. PT DENIES SI/HI, INTENT OR PLAN. PT DENIES HALLUCINATIONS, NO RESPONSE TO INTERNAL STIMULI NOTED. NO PARANOIA OR DELUSIONS NOTED. PT IS CALM, PLEASANT AND COOPERATIVE. NO AGGRESSIVE BEHAVIORS. NO SEXUALLY INAPPROPRIATE BEHAVIORS OR COMMENTS. PT IS MEDICATION COMPLIANT WITHOUT DIFFICULTY. NO DISTRESS NOTED. PLAN TO CONTINUE CURRENT TREATMENT, CONTINUE TO MONITOR MOOD AND BEHAVIORS, PROVIDE APPROPRIATE REORIENTATION, REDIRECTION AND 1:1 NEEDED. CONTINUE TO ENCOURAGE MEDICATION COMPLIANCE WELL GROUP ATTENDANCE AND PARTICIPATION.
--- NOTE | 2018-10-16 18:56 | NUR ---
SHIFT CHART CHECK COMPLETED.
[2018-10-16 19:40] VITALS: BP 102/60
--- NOTE | 2018-10-16 21:42 | NUR ---
P-MEMORY DEFICITS I-PROVIDE VERBAL INTERVENTION FOR EMOTIONAL SUPPORT, ADMINISTER MEDICATIONS, MONITOR SLEEP R-ALERT & ORIENTED TO PERSON & PLACE & STATED, "I[facility]M [place] [facility] [place]." SHORT TERM MEMORY DEFICITS. PEARL PELLER MEMORY INTACT. PLEASANT INTERACTIONS. MOVES VIA WHEELCHAIR WITH 1-2 STAFF ASSISTS. NO AGITATION OR AGGRESSIVE BEHAVIOR. NO INAPPROPRIATE BEHAVIOR. HAS REMAINED CALM, POLITE & PLEASANT. WENT TO HIS ROOM & HAS BEEN RESTING QUIETLY. REFUSED SNACK. COMPLIANT WITH MEDICATIONS. P-CONTINUE TO MONITOR & PROVIDE PHYSICAL ASSISTANCE & EMOTIONAL SUPPORT NEEDED.
--- NOTE | 2018-10-16 21:48 | NUR ---
24 HR chart check completed.
--- NOTE | 2018-10-17 05:48 | NUR ---
PT HAS SLEPT PAST 2214
[2018-10-17 08:00] VITALS: BP 118/62
--- NOTE | 2018-10-17 10:30 | NUR ---
DR. CHRISTINE ON UNIT TO ASSESS PATIENT.
--- NOTE | 2018-10-17 14:28 | NUR ---
P: SEXUALLY INAPPROPRIATE COMMENT AND GESTURES TOWARDS MENTAL HEALTH WORKER DURING SHOWER. PATIENT WAS DRYING SELF OFF IN THE PERINEAL AREA REPEATEDLY, TOLD FEMALE MENTAL HEALTH WORKER THE FOLLOWING "I LIKE TO DO IT, IT FEELS GOOD. WHY DON'T YOU DO IT, IT IS BETTER WHEN WOMEN DO IT" I: PATIENT REDIRECTED ABOUT COMMENT AND THAT IT WAS INAPPROPRIATE. R: EFFECTIVE. PATIENT IS ALERT TO PERSON, SITUATION AND PLACE:MCC WITH CONFUSION, LONG/SHORT TERM MEMORY DEFICITS. MOOD IS STABLE WITH FLAT AFFECT. ISOLATIVE AT TIMES. ENCOURAGED TO PARTICIPATED IN GROUP SESSION. INTERACTIVE WITH STAFF AND OTHER PATIENTS. 1 PERSON ASSIST WITH ACTIVITIES OF DAILY LIVING, CONTINENT OF BOWEL AND BLADDDER. SET UP FOR MEALS, INTAKES ARE GOOD WITH ADEQUATE FLUIDS. MEDICATION COMPLAINT WITH EDUCATION PROVIDED. Q 15 MINUTE SAFETY CHECKS. UP IN WHEELCHAIR, SELF PROPELS IN ON UNIT WITHOUT DIFFICULTY. P:CONTINUE TO MONITOR FOR AGGRESSION, SEXUALLY INAPPROPRIATE GESTURES AND COMMENTS, MEDICATION COMPLAINTS. PROVIDE ONE ON ONE AND REDIRECTION NEEDED.
[2018-10-17 19:41] VITALS: BP 149/67
--- NOTE | 2018-10-17 20:06 | NUR ---
24 HR chart check completed.
--- NOTE | 2018-10-17 21:29 | NUR ---
P-MEMORY DEFICITS I-PROVIDE VERBAL INTERVENTION FOR EMOTIONAL SUPPORT, ADMINISTER MEDICATIONS, MONITOR SLEEP R-ALERT & ORIENTED TO PERSON SOMEWHAT PLACE, YEAR & NAME OF PRESIDENT. SHORT TERM MEMORY DEFICITS. RESIDENTIAL MEMORY INTACT. PLEASANT INTERACTIONS. NO INAPPROPRIATE COMMENTS OR GESTURES. MOVES VIA WHEELCHAIR WITH 1-2 STAFF ASSISTS. NO AGITATION OR AGGRESSIVE BEHAVIOR. HAS REMAINED CALM, POLITE & PLEASANT. WENT TO HIS ROOM & HAS BEEN RESTING QUIETLY. REFUSED SNACK. COMPLIANT WITH MEDICATIONS. P-CONTINUE TO MONITOR & PROVIDE PHYSICAL ASSISTANCE & EMOTIONAL SUPPORT NEEDED.
--- NOTE | 2018-10-18 05:35 | NUR ---
PT HAS SLEPT PAST 2300 WITH A BRIEF AWAKENING TO GO TO THE BATHROOM WITH ASSISTANCE FROM STAFF.
--- NOTE | 2018-10-18 07:05 | NUR ---
PHYSICAL THERAPY Patient seen this am for therapy visit and was supine in bed upon therapist arrival. OT medical administrative assistant was present for observation only during VENUE COORDINATOR visit as patient reports no new c/o's at this time. Patient transfers supine to sit EOB with Mod A x 1 and sit to stand Mod A. Patient also with use of R LE AFO brace and presents with L UE deficits. Patient ambulates MINE DEPUTY/MIN, 30'x 1, demonstrating very slow lexie and increased difficulty with R foot advance. Patient also demonstrated several bouts of unsteady gait pattern and unable to take any backward steps. Patient fatigues quickly and returned to w/c folloiwng gait ex. Patient remained in activity room under [facility] staff Supervision awaiting breakfast. Will continue per POC as tolerated, total treatment time 14 minutes. Tre Conti, VENUE COORDINATOR
--- NOTE | 2018-10-18 07:26 | NUR ---
OT NOTE Pt was seen this A.M. 1:1 for 26 minute OT session with PAYROLL ADMINISTRATIVE ASSISTANT and nursing staff present for observation only. Upon arrival pt was supine in bed. Pt identified by name and and had complaints of generalized weakness and fatigue. Pt transferred supine to sit EOB with modA for assist with UB. While sitting EOB pt donned L shoe with modA due requiring assist with set up and donning due to being unable to forward flex. Pt attempted compensatory technique and had LOB to the R that required modA to correct. Pt then donned R shoe and AFO with maxA due to no use of RUE. Sit to stand completed from bed level with modA and verbal prompts for proper foot and hand placement. Pt then completed functional mobility into the hallway with Higinio and use of hand rail for UE support. Pt required occasional modA for R foot advancement. Pt then completed w/c mobility from his bedroom to the dining room with SBA with three rest breaks throughout due to quick onset of fatigue. Pt performed with good safety awareness throughout. Pt was left sitting upright in the w/c in the dining room under [facility] staff supervision. Continue with rec D/C plan to LTC. ANGELA Abel/Tigre
[2018-10-18 07:57] VITALS: BP 139/65
--- NOTE | 2018-10-18 08:22 | NUR ---
PT EATING BREAKFAST THIS MORNING PLEASANT COOPERATIVE WITH ALL ASPECTS. MEDICATION COMPLIANT. PT DENIES SI/HI OR DELUSIONS ALERT TO PERSON PLACE AND YEAR. CONTINUE TO MONITOR PT Q15 MIN CHECKS, PROMOTE INDEPENDANCE POSSIBLE. PT FEEDS SELF WITH SET UP, REQUIRES 1 ASSIST FOR TRANSFERS.
--- NOTE | 2018-10-18 10:37 | NUR ---
RUTH ANN PACE NP ON UNIT AT THIS TIME TO ASSESS PT.
--- NOTE | 2018-10-18 11:51 | NUR ---
AM GROUP PT DID NOT ATTEND MORNING GROUP THERAPY. PT WAS IN BED RESTING.
--- NOTE | 2018-10-18 12:08 | NUR ---
Clinical Updates faxed to [facility] Attn: Simi.
--- NOTE | 2018-10-18 14:20 | NUR ---
PHYSICAL THERAPY CO-SIGN I approve of the Physical Therapy notes written above. KURTIS COFFMAN PT,DPT
--- NOTE | 2018-10-18 16:00 | NUR ---
PM GROUP/ART AND MUSIC PT ATTENDED GROUP AND PARTICIPATED BY OBSERVING OTHERS AND READING THE NEWSPAPER. PT EXHIBITED NO AGGRESSION OR SEXUAL INAPPROPRIATENESS DURING GROUP.
[2018-10-18 20:00] VITALS: BP 122/67
--- NOTE | 2018-10-18 20:45 | NUR ---
EVENING/RELAXTION TECHNIQUES/LEISURE SKILLS PT ENCOURAGED TO ATTEND AND PARTICIPATE BUT CHOSE TO REMAIN IN BED SLEEPING. PT WILL CONTINUE TO BE ENCOURAGED TO ATTEND AND PARTICIPATE IN FUTURE GROUP SESSIONS.
--- NOTE | 2018-10-18 22:30 | NUR ---
P-CONFUSION. PATIENT ALERT WITH CONFUSION. PATIENT WITH SHORT TERM AND CHALKER SOLES MEMORY DEFICITS. PATIENT WITH NO RESPIRATORY DISTRESS. PATIENT WITH NO HALLUCINATION OR DELUSIONS. PATIENT WITH NO SUICIDAL OR HOMICIDAL IDEATIONS. PATIENT WITH ISOLATIVE TO ROOM THROUGHOUT SHIFT. I-REDIRECTION WITH 1:1 THERAPEUTIC INTERVENTIONS AND PRESENT REALITY. EDUCATE AND ENCOURAGE MEDICATION COMPLIANCE R-PATIENT MEDICATION COMPLIANT. PATIENT PREOCCUPIED WITH TALKING TO HIS . THIS NURSE DID SPEAK TO BRUCE AND SHE DID NOT WANT TO TALK TO PATIENT AT HS. , BRUCE STATED "HE JUST IS GOING TO TELL ME THE SAME THING HE HAS ALL DAY. HE JUST WANT TO KNOW WHEN I CAN COME AND PICK HIM UP. IT JUST MAKES ME FEELS SO BAD. HE DOESN'T UNDERSTAND THAT I JUST CAN'T COME AND GET HIM. CAN YOU PLEASE JUST TELL HIM THAT I CAN'T TALK TO HIM RIGHT NOW AND I AM GOING TO BED". THIS NURSE EXPLAINED TO PATIENT THAT HE CAN CALL HIS TOMORROW. PATIENT VERBALIZED UNDERSTANDING. PATIENT PLAYING WITH BED CONTROLS AND RINGING NURSE LIGHT FREQUENTLY AT HS. PATIENT WITH RIGHT SIDED WEAKNESS. PATIENT OFFERED NOURISHMENT AND FLUIDS AT HS. P-CONTINUE TO ENCOURAGE MEDICATION COMPLIANCE, CONTINUE TO PRESENT REALITY, ENCOURAGE GROUP THERAPY WHILE AWAKE
--- NOTE | 2018-10-18 23:43 | NUR ---
24 HR chart check completed.
--- NOTE | 2018-10-19 05:26 | NUR ---
PATIENT SLEPT 1-2 HOURS OF INTERRUPTED SLEEP THROUGHOUT SHIFT. Q 15 MINUTE CHECKS MAINTAINED
--- NOTE | 2018-10-19 07:45 | NUR ---
OT NOTE Pt was seen this A.M. 1:1 for 24 minute OT session with nursing staff present for observation only. Upon arrival pt was supine in bed. Pt identified by name and and had no complaints at this time. Pt transferred supine to sit EOB with modA for assist with UB. While sitting EOB pt donned B socks and shoes with RLE AFO with Higinio. Sit to stand completed from bed level with modA followed by stand pivot from EOB to the w/c with modA and two episodes of R knww buckling resulting in maxA to correct. Pt was then taken into the bathroom where he completed a stand pivot transfer onto the standard commode with modA. Clothing managment completed with modA. Standing pivot transfer was then completed back to the w/c with modA. Throughout all transfers pt required Higinio for advancing his RLE. Pt then completed w/c mobility from the bedroom to the dining room with SBA and multiple rest breaks throughout due to limited endurance. Pt was left sitting upright in the w/c under [facility] staff supervision. Continue with rec D/C plan to LTC. ANGELA Abel/Tigre
[2018-10-19 08:00] VITALS: BP 127/89
--- NOTE | 2018-10-19 11:10 | NUR ---
Telephone Conference with Dr. Matthew RN. , [facility] Director and Paper Products Machine Operator. Plan for discharge Thursday. Pt. will return to [facility] at discharge.
--- NOTE | 2018-10-19 11:46 | NUR ---
AM GROUP PT DID NOT ATTEND MORNING GROUP THERAPY. PT WAS IN BED RESTING
--- NOTE | 2018-10-19 13:27 | NUR ---
PHYSICAL THERAPY Patient presented to therapy in wheelchair in his room when this RN CAMP and ANGELA COOMBS arrived in the patient's room. Patient was identified by name and . Patient performed sit to stand transfer with MOD A X 1. Patient ambulated 20' x 1 with CGA X 1 on R side and patient using hallway railing on the L side. Patient became fatigued and sat down in chair with MIN A X 1. Patient sit ot stand agai from low wheelchair to [facility] to EOB with MOD A X 2. Patient transferred to supine in bed with SBA. Patient was left supine with head of bed elevated and bed alarm activated. Patient was 1:1 with this RN CAMP for 17 minutes total. ISABELL HAMMONDS RN CAMP
--- NOTE | 2018-10-19 17:28 | NUR ---
PT CONFUSED. ST/LT DEFICITS. PT ASSESSED FOR ORIENTATION LEVEL, MOOD AND AFFECT. PT ASSESSED FOR SI/HI. ASSESSED FOR HALLUCINATIONS AND DELUSIONS. ASSESSED FOR SLEEP QUALITY AND APPETITE. PT ORIENTED TO PERSON ONLY. MOOD IS STABLE, AFFECT IS FLAT. PT DENIES SI, INTENT OR PLAN. DENIES HALLUCINATIONS. NO OVERT S/S OF ATTENDING TO INTERNAL STIMULI NOTED. PT REPORTS SLEEPING AND EATING WELL. WILL CONTINUE TO REORIENT AND REDIRECT APPROPRIATE. WILL CONTINUE TO ENCOURAGE RESTFUL SLEEP. WILL CONTINUE TO MONITOR APPETITE. WILL CONTINUE TO ENCOURAGE PT TO PARTICIPATE IN GROUP THERAPY/ACTIVITY. Q15 MIN MONITORING FOR SAFETY.
[2018-10-19 20:08] VITALS: BP 133/61
--- NOTE | 2018-10-19 22:09 | NUR ---
Patient alert and oriented x3 with confusion noted. Patient laying down in bed at this time. ST/LT memory deficits noted. Denies SI. No signs of any hallucinations/delusions noted at this time. Patient compliant with medications without any difficulty. Provided 1:1 with patient for emotional support. No sexual inappropriateness noted at this time. Redirected/reoriented when appropriate/needed. Plan to continue to encourage medication compliance and continue to provide 1:1 for emotional support. Also continue to redirect/reorient when needed/appropriate. Q 15 minute safety checks continued and maintained. See [facility] flowsheet for further documentation.
--- NOTE | 2018-10-20 00:17 | NUR ---
24 HR chart check completed.
--- NOTE | 2018-10-20 06:03 | NUR ---
Patient slept approx. 6 hours throughout shift. Q 15 minutes safety checks continued and maintained.
--- NOTE | 2018-10-20 07:30 | NUR ---
PHYSICAL THERAPY Patient seen this am for therapy visit and was resting supine in bed upon therapist arrival. OT lead dental assistant was present for observation only during RESISTANCE MACHINE WELDER SETTER visit as patient voices no new c/o's at this time. Patient transfers supine to sit EOB with MOD A, needing a few minutes to collect himself upon first awakening. Patient needed assistance Donning R LE AFO brace as well as L shoe prior to completing sit to stand MOD/SENIOR LEAD JAVA DEVELOPER x 2. Patient ambulated 15'x 2 to bathroom for toilet transfer, then back to w/c, demonstrating very slow lexie, uneven stride due to increased difficutly with R LE foot advance. Patient remained in activityr room w/c following treatment under [facility] staff Supervision. Will continue per POC as tolerted, total treatment time 15 minutes. Tre Conti, RESISTANCE MACHINE WELDER SETTER
[2018-10-20 07:54] VITALS: BP 120/62
--- NOTE | 2018-10-20 07:54 | NUR ---
OT NOTE Pt was seen this A.M. 1:1 for 24 minute OT session with FARM EQUIPMENT SERVICE TECHNICIAN and nursing staff present for observation only. Upon arrival pt was supine in bed. Pt identified by name and and had no complaints at this time. Pt transferred supine to sit EOB with modA for assist with UB. While sitting EOB pt donned R shoe and AFO with modA and L shoe with Higinio. Sit to stand was completed from bed level with modA X 2 followed by functional mobility into the bathroom with modA X 2 MANAGER SALES AND MARKETING due to R sided weakness. Throughout mobility pt had multiple LOB both backwards and to the R that required modA to correct and required occasional assist for R foot advancement. Pt transferred on to standard commode with maxA due to poor follow of commands and poor safety awareness resulting in pt sitting too soon before to commode surface. Pt then transferred off standard commode with modA X 2 and use of grab bar for UE support. Functional mobility completed back to the w/c with modA X 2 MANAGER SALES AND MARKETING and occasional maxA for R foot advancement. Pt completed w/c mobility to the dining room with SBA and good sfaety awareness. Pt was left sitting upright in the w/c in the dining room under [facility] staff supervision. Continue with rec D/C plan to LTC. ANGELA Abel/Tigre
--- NOTE | 2018-10-20 08:00 | NUR ---
Treatment Plan meeting was held with RN, AT, SW and Work Measurement Engineer. Plan for discharge Thursday with return to the [facility].
--- NOTE | 2018-10-20 10:23 | NUR ---
RUTH ANN PACE HEALTH CARE MANAGER ON UNIT TO ASSESS PT, UPDATE PROVIDED.
--- NOTE | 2018-10-20 10:44 | NUR ---
PT C/O CONSTIPATION, MILK OF MAG GIVEN PER PRN ORDERS, PT CONSUMED 1/2 OF THE DOSE STATING "I DON'T WANT IT TO BE TOO STRONG". WILL CONTINUE TO MONITOR.
--- NOTE | 2018-10-20 11:49 | NUR ---
AM GROUP PT WAS PRESENT FOR MORNING GROUP THERAPY AND PARTICIPATED BY LISTENING TO THE MUSIC AND HOLDING A CONVERSATION WITH THIS DROP HAMMER SETTER UP. PT ASKED, "WHAT DAY IS THIS?" WHEN TOLD IT WAS THURSDAY, SHOOK HIS HEAD AND SAID, "I HAVE TO WAIT UNTIL THURSDAY TO LEAVE!"
--- NOTE | 2018-10-20 14:32 | NUR ---
P: PT ISOALTIVE THROUGHOUT THE DAY, PT REFUSED TO PARTICIAPTE IN GROUPS/ACTIVITES. I: ENCOURAGED GROUP PARTICIPATION AND SOCIALIZATION R: PT ALERT TO PERSON, PLACE AND TIME. PT CONTINUES TO BE ISOALTIVE AND REFUSE GROUP PARTICIPATION AND SOCIALIZATION. NO HALLUCINATIONS OR DELUSIONS NOTED. PT DENIES ANY SUICIDAL THOUGHTS. PT MED COMPLIANT WITHOUT DIFFICULTY. PT UP TO WHEELCHAIR, WILL PROPEL SELF IN [place], REQUIRES 1 STAFF ASSIST FOR TRANSFERS. PT CONTINENT OF BOWEL AND BLADDER. P: CONTINUE TO ENCOURAGE GROUP PARTICIPATION AND SOCIALIZATION, ENCOURAGE MED COMPLIANCE AND PROVIDE MED EDUCATION, ENCOURAGE EMOTIONAL SUPPORT AND 1:1 FOR PT TO VOICE FEELINGS.
--- NOTE | 2018-10-20 16:22 | NUR ---
PHYSICAL THERAPY CO-SIGN I approve of the Physical Therapy notes written above. KURTIS COFFMAN PT,DPT
--- NOTE | 2018-10-20 19:06 | NUR ---
ON UNIT TO SEE PT AT THIS TIME, UPDATE GIVEN.
[2018-10-20 19:27] VITALS: BP 122/74
--- NOTE | 2018-10-20 20:21 | NUR ---
24 HR chart check completed.
--- NOTE | 2018-10-20 21:45 | NUR ---
P-MEMORY DEFICITS I-PROVIDE VERBAL INTERVENTION FOR EMOTIONAL SUPPORT, ADMINISTER MEDICATIONS, MONITOR SLEEP R-ALERT & ORIENTED TO PERSON, STATES HES IN A SENIOR LIVING, CORRECT YEAR & NAME OF PRESIDENT. SHORT & MCFP MEMORY DEFICITS. PLEASANT INTERACTIONS. NO INAPPROPRIATE COMMENTS OR GESTURES. MOVES VIA WHEELCHAIR WITH 1-2 STAFF ASSISTS. NO AGITATION OR AGGRESSIVE BEHAVIOR. NO INAPPROPRIATE SEXUAL GESTURES OR REMARKS. SAT IN THE DINING ROOM WITH PEERS AT THE BEGINNING OF THE SHIFT. HAS REMAINED CALM, POLITE & PLEASANT. WENT TO HIS ROOM & HAS BEEN RESTING QUIETLY. COMPLIANT WITH MEDICATIONS. P-CONTINUE TO MONITOR & PROVIDE PHYSICAL ASSISTANCE & EMOTIONAL SUPPORT NEEDED.
--- NOTE | 2018-10-21 06:00 | NUR ---
PT HAS SLEPT PAST 2244
--- NOTE | 2018-10-21 07:00 | NUR ---
PHYSICAL THERAPY Patient seen this am for therapy visit and was supine in bed upon therapist arrival. OT asssitant was present this morning for observation only during PIT SUPERVISOR visit as patient reports feeling cold and tired. Patient transfers supine to sit EOB with MOD A, taking a few minutes to Ayden shoes and R AFO brace with therapist assist. Patient performed sit to stand at bedside MOD A and ambulated BOWLING OR SKATING FRONT DESK CLERK/MIN, use single handrail support, 25'x 1, demonstrating Poor upright posture, uneven stride, and increased difficulty advancing R LE. Patient improved R step length with therapist assist with foot advance and was able to maintain stride x 3-4 steps before quick onset of fatigue. Patient returned to his w/c and remained in activity room awaiting breakfast under [facility] staff Supervision. Will continue per POC as tolerated, total treatment time 14 minutes. Tre Conti, PIT SUPERVISOR
--- NOTE | 2018-10-21 07:30 | NUR ---
OT NOTE Pt was seen this A.M. 1:1 for 17 minute OT session with DIRECTOR OF CAREER RESOURCES and nursing staff present for observation only. Upon arrival pt was supine in bed. Pt identified by name and and had no complaints at this time. Pt transferred supine to sit EOB with maxA for assist with UB. While sitting EOB pt donned R shoe and AFO with maxA and L shoe with Higinio. Pt completed multiple sit to stand transfers from bed level for increased I in functional transfers. Pt was able to complete with modA X 2. Pt then completed functional mobility around the room with modA ACQUISITION ASSOCIATE and multiple LOB backwards that required modA to correct. pt was left sitting upright in the w/c in the dining room under [facility] staff supervision. Continue with rec D/C plan to LTC. ANGELA Abel/Tigre
[2018-10-21 07:31] VITALS: BP 114/62
--- NOTE | 2018-10-21 08:00 | NUR ---
Treatment Plan meeting was held with RN, AT, SW and Mandrel Puller. Plan for discharge Thursday. [facility]
--- NOTE | 2018-10-21 08:01 | NUR ---
Patient resting quietly with no c/o discomfort. Respirations easy and regular. Vital signs stable. No overt distress. LUCAS NUNN
--- NOTE | 2018-10-21 10:34 | NUR ---
PT CONFUSED. ST/LT DEFICITS. PT ASSESSED FOR ORIENTATION LEVEL, MOOD AND AFFECT. PT ASSESSED FOR SI/HI. ASSESSED FOR HALLUCINATIONS AND DELUSIONS. ASSESSED FOR SLEEP QUALITY AND APPETITE. ENCOURAGED PARTICIPATION IN GROUP THERAPY/ACTIVITY. PT ORIENTED TO PERSON ONLY. MOOD IS STABLE, AFFECT IS FLAT. PT DENIES SI, INTENT OR PLAN. DENIES HALLUCINATIONS. NO OVERT S/S OF ATTENDING TO INTERNAL STIMULI NOTED. PT REPORTS SLEEPING AND EATING WELL. PT ATTENDED GROUP THERAPY WITH MINIMAL RESISTANCE. WILL CONTINUE TO REORIENT APPROPRIATE. WILL CONTINUE TO ENCOURAGE RESTFUL SLEEP. WILL CONTINUE TO MONITOR APPETITE. WILL CONTINUE TO ENCOURAGE PT TO PARTICIPATE IN GROUP THERAPY/ACTIVITY. Q15 MIN MONITORING FOR SAFETY.
--- NOTE | 2018-10-21 11:44 | NUR ---
AM GROUP/LEISURE INTERESTS PT WAS PRESENT AT THE START OF MORNING GROUP THERAPY BUT CHOSE NOT TO PARTICIPATE IN ANY ACTIVITY OFFERED. PT WAS REMOVED FROM THE DAYROOM BY A NURSE AND DID NOT RETURN
--- NOTE | 2018-10-21 15:40 | NUR ---
PM GROUP/ART AND MUSIC PT ATTENDED AFTERNOON GROUP THERAPY AND PARTICIPATED BY DOING A Q-TIP PAINTING. PT WAS QUIET AND ON TASK. PT EXPRESSED NO SEXUAL INAPPROPRIATENESS DURING GROUP. PT WAS POLITE AND SOFT SPOKEN WHEN TELLING THIS LOCATION MANAGER ABOUT HIS CAMPING DAYS
[2018-10-21] MEDS ORDERED: MEMANTINE HCL10 MG PO (18:29)
[2018-10-21] MEDS ORDERED: CITALOPRAM20 MG PO (18:29)
[2018-10-21] MEDS ORDERED: DIVALPROEX SOD250 MG PO (18:29)
[2018-10-21] MEDS ORDERED: RIVASTIGMINE TAR3 M1 PO (18:29)
[2018-10-21] MEDS ORDERED: DIVALPROEX SOD500 MG PO (18:29)
--- NOTE | 2018-10-21 18:30 | NUR ---
ON UNIT TO SEE PT AT THIS TIME. GAVE VERBAL ORDER FOR DISCHARGE FOR TOMORROW. DISCHARGE SCRIPTS ESCRIBED TO PT'S PHARMACY FROM NURSING FACILITY.
[2018-10-21 19:15] VITALS: BP 116/65
--- NOTE | 2018-10-21 23:15 | NUR ---
P-MEMORY DEFICITS I-PROVIDE VERBAL INTERVENTION FOR EMOTIONAL SUPPORT, ADMINISTER MEDICATIONS, MONITOR SLEEP R-ALERT & ORIENTED TO PERSON, SOMEWHAT PLACE & TIME, & NAME OF PRESIDENT. SHORT & COMMERCIAL ROOFING ESTIMATOR MEMORY DEFICITS. PLEASANT INTERACTIONS. NO INAPPROPRIATE COMMENTS OR GESTURES. MOVES VIA WHEELCHAIR WITH 1-2 STAFF ASSISTS. NO AGITATION OR AGGRESSIVE BEHAVIOR. NO INAPPROPRIATE SEXUAL GESTURES OR REMARKS. SAT IN THE DINING ROOM WITH PEERS AT THE BEGINNING OF THE SHIFT. CALM, POLITE & PLEASANT. COMPLIANT WITH MEDICATIONS. P-CONTINUE TO MONITOR & PROVIDE PHYSICAL ASSISTANCE & EMOTIONAL SUPPORT NEEDED.
--- NOTE | 2018-10-22 02:19 | NUR ---
24 HR chart check completed.
--- NOTE | 2018-10-22 06:16 | NUR ---
PT HAS SLEPT PAST 2200.
[2018-10-22 07:12] VITALS: BP 118/70
--- NOTE | 2018-10-22 07:35 | NUR ---
PHYSICAL THERAPY Patient seen this am for therapy visit and was supine in bed upon therapist arrival. OT surgical assistant certified was present for observation only this session as patient reports no new c/o's at this time. Patient transfers supine to sit EOB and sit to stand MAX A and presents with R AFO brace. Patient ambulates POTATO PEELER/MOD at first from bed to hallway, then POTATO PEELER/MIN with use of single handrail support, 30'x 1, demonstrating increased stride and improved weight shifting. Patient still fatigues quickly and returned to w/c in activity room under [facility] staff Supervision as breakfast arrived. Will continue per POC as tolerated, total treatment time 16 minutes. Tre Conti, QUALITY MANAGER
--- NOTE | 2018-10-22 07:45 | NUR ---
OT NOTE Pt was seen this A.M. 1:1 for 15 minute OT session with MECHANICAL ADJUSTER and nursing staff present for observation only. Upon arrival pt was supine in bed. Pt identified by name and and had no complaints at this time. Pt transferred supine to sit EOB with modA for assist with UB. While sitting EOB pt donned B shoes and R AFO with modA. Sit to stand completed from bed level with modA X 2. Functional mobility completed around the room with modA X 2 and maxA to correct retrograde posture and R lateral lean. Pt transferred into the w/c with Higinio and verbal prompts for safety awareness. Pt was left sitting upright in the dining room in his w/c under [facility] staff supervision. Continue with rec D/C plan to LTC. ANGELA Abel/Tigre
--- NOTE | 2018-10-22 08:00 | NUR ---
Treatment Plan meeting was held with RN, AT, SW and Educational Audiologist. Plan for discharge today. Pt. to return to the [facility]. Notified Sue Pierre and Spoke with Pt. to notify of discharge today.
--- NOTE | 2018-10-22 08:20 | NUR ---
SPOKE WITH RUTH ANN PACE AT [phone] RE: PT DISCHARGE FOR TODAY, NO FURTHER ORDERS AT THIS TIME.
--- NOTE | 2018-10-22 10:18 | NUR ---
PT ALERT TO PERSON, PLACE AND TIME. PT MED COMPLIANT WITHOUT DIFFICULTY, MED EDUCATION PROVIDED. PT CALM, MOOD IS STABLE. PT DENIES ANY SUICIDAL THOUGHTS. NO HALLUCINATIONS OR DELUSIONS NOTED. PT PLEASANT AND COOPERATIVE WITH STAFF AND PEERS. PT UP TO WHEELCHAIR, DUE TO INABILITY TO AMBULATE INDEPENDENTLY AND RIGHT SIDED WEAKNESS. PT CONTINENT OF BOWEL AND BLADDER. PLAN IS TO MONITOR PT BEHAVIORS ON Q15 MIN SAFETY CHECKS, AND PREPARE PT GIA DISCHARGE.
--- NOTE | 2018-10-22 11:30 | NUR ---
RUTH ANN PACE ON UNIT TO ASSESS PT, UPDATE PROVIDED.
--- NOTE | 2018-10-22 11:47 | NUR ---
AM GROUP PT WAS PRESENT FOR MORNING GROUP THERAPY AND PARTICIPATED BY READING THE NEWSPAPER. PT IS SET TO BE DISCHARGED FROM THE UNIT THIS AFTERNOON
--- NOTE | 2018-10-22 13:12 | NUR ---
PT DISCHARGED TO [facility] [place], PT BELONGINGS AND DISCHARGE PAPERWORK SENT WITH PT. PT AWAKE AND ALERT AT TIME OF DISCHARGE.
--- NOTE | 2018-10-22 13:21 | NUR ---
Met with pt briefly prior to discharge. Pt was smiling and stated that he is very happy to be discharging. Pt stated that everyone treated him well in the [facility] but he is ready to go home.
--- NOTE | 2018-10-22 13:23 | NUR ---
Patient discharged to the [facility]. Follow-up will be with Dr Terrance Bustamante, visiting psychiatrist. While at [facility], pt's behaviors improved. Pt was not aggressive. Pt's sexually inappropriate comments lessened. He was not exit-seeking. Pt did have a tendency to isolate but was pleasant and cooperative with staff and peers.
--- NOTE | 2018-10-22 13:25 | NUR ---
NURSE TO NURSE REPORT GIVEN TO JENIFFER AT [facility] [place].
--- NOTE | 2018-10-22 14:29 | NUR ---
OCCUPATIONAL THERAPY CO-SIGN I approve of the Occupational Therapy notes written above. RENETTA ABBOTT OTR/Tigre
--- NOTE | 2018-10-25 09:23 | NUR ---
PHYSICAL THERAPY CO-SIGN I approve of the Physical Therapy notes written above. KURTIS COFFMAN PT,DPT
== END 2018-10-22 13:13 | disposition other institution (70) | DRG 883 ==
LOC: 3N 01:03
PROVIDERS: ADMIT Psychiatry & Neurology Psychiatry
PROC: 0HBRXZZ Excision of Toe Nail, External Approach (ICD-10-PCS; principal; 2018-10-09)
DX: F63.81 Intermittent explosive disorder (principal); N17.0 Acute kidney failure with tubular necrosis; J18.9 Pneumonia, unspecified organism; I69.351 Hemiplegia and hemiparesis following cerebral infarction affecting right dominant side; F33.1 Major depressive disorder, recurrent, moderate; F02.81 Dementia in other diseases classified elsewhere, unspecified severity, with behavioral disturbance; G30.9 Alzheimer's disease, unspecified; J60 Coalworker's pneumoconiosis; N40.0 Benign prostatic hyperplasia without lower urinary tract symptoms; K57.90 Diverticulosis of intestine, part unspecified, without perforation or abscess without bleeding; M19.90 Unspecified osteoarthritis, unspecified site; I10 Essential (primary) hypertension; K21.9 Gastro-esophageal reflux disease without esophagitis; E78.5 Hyperlipidemia, unspecified; D50.9 Iron deficiency anemia, unspecified; M19.91 Primary osteoarthritis, unspecified site; B35.1 Tinea unguium; Z88.8 Allergy status to other drugs, medicaments and biological substances; Z86.711 Personal history of pulmonary embolism; Z88.0 Allergy status to penicillin; Z79.01 Long term (current) use of anticoagulants; Z82.49 Family history of ischemic heart disease and other diseases of the circulatory system; Z82.3 Family history of stroke; Z79.82 Long term (current) use of aspirin; Z79.899 Other long term (current) drug therapy